=== PATIENT | female | born 1980 | race Caucasian/White ===

== ENCOUNTER 2020-10-12 13:33 | Day surgery (SDC) | payer BC ==
[2020-10-12] MEDS ORDERED: BUPIVACAINE 0.5% VIAL IJ ONE (13:34)
[2020-10-12] MEDS ORDERED: Depo-Medrol 40 MG/ML IM ONE (13:34)
[2020-10-12] MEDS ORDERED: DIPRIVAN 200 MG/20 ML IV ONE (16:39)
[2020-10-12] MEDS ORDERED: Lactated Ringers 1,000 ML IV ONE (16:40)
--- NOTE | 2020-10-12 20:31 | XRAY ---
Indication: Right SI joint injection. Intraoperative fluoroscopy provided for 17 seconds. 2 digital spot image submitted for interpretation demonstrates posterior needle tip projecting over the inferior right SI joint. Correlate with intraoperative findings/report.
--- NOTE | 2020-10-12 21:34 | XRAY ---
17 seconds of fluoroscopy was used in surgery for a right SI joint injection.
== END 2020-10-12 17:07 | disposition home or self-care (01) ==
LOC: SDC-PAIN 13:33
PROVIDERS: ATTEND Psychiatry & Neurology Pain Medicine
DX: M46.1 Sacroiliitis, not elsewhere classified (principal)
CPT/HCPCS: 27096; 72020; 77002; 84703; J1030; J2704; G0260

== ENCOUNTER 2021-04-12 10:13 | Emergency (ER) | payer BC ==
[2021-04-12 10:22] VITALS: BP 108/76; PULSE 72; O2SAT 100
[2021-04-12] MEDS ORDERED: Sodium Chloride 0.9% 1000 ML 1,000 ML ONE (10:39)
[2021-04-12] MEDS ORDERED: Sodium Chloride 0.9% 1000 ML 1,000 ML IV STA (10:45)
--- NOTE | 2021-04-12 10:45 | ERPHSYRPT ---
- History of Present Illness Time Seen by Provider: 04/12/21 10:41 Source: patient Exam Limitations: no limitations Patient Subjective Stated Complaint: Pt was at the lab giving blood and she suddenly became light headed and lab personnel stated that she began having seizure like activety, afterwards, they gave her juice to drink and she vomited and was sent down to the ER Triage Nursing Assessment: Pt brought to the ER from the lab, hypotensive, denies pain, pt states that she did have a seizure once while in high school while she was giving blood, pt reports lab work today due to not having any done in several years and she has been feeling overly tired, pulses normal, skin n/w/d, pt had been fasting this morning and was worked up about the blood work Physician History: This is a 40-year-old white female who was brought to the emergency department from the lab after obtaining many vials of blood for laboratory evaluation. Patient felt as though she was going to pass out and had seizure-like activity. She had a similar episode in the distant past during blood draw. Patient did fast last night for the blood draw today. She does feel as though she is dehydrated. She had a vomiting episode. She also stated that she was nauseated upon entrance into the emergency department. However, that has resolved. In discussing the work-up, I told the patient I would review her labs that were just drawn and not repeat unnecessarily. I also recommended intravenous normal saline infusion, urinalysis with test if indicated, EKG and a CAT scan of the head. Patient was unsure that she wanted to do any of the above except for infusion of normal saline. Timing/Duration: today Severity: moderate Associated Symptoms: nausea, vomiting, seizure (Seizure-like activity), No chest pain Allergies/Adverse Reactions: Penicillins Allergy (Verified 04/12/21 10:23) Home Medications: No Reportable Medications [No Reported Medications] 04/12/21 [History] Travel Risk - International Travel Have you traveled outside of the country in past 3 weeks: No - Coronavirus Screening Are you exhibiting any of the following symptoms?: No Close contact with a COVID-19 positive Pt in past 14-21 Days: No - Vaccine Status Have you recieved a Covid-19 vaccination: Yes Instrumentation Technologist: Unknown - Vaccination Dates Dates if Unknown: unknown - Review of Systems Constitutional: Weakness Eyes: No Symptoms Ears, Nose, & Throat: No Symptoms Respiratory: No Symptoms Cardiac: No Symptoms Abdominal/Gastrointestinal: No Symptoms Genitourinary Symptoms: No Symptoms Musculoskeletal: No Symptoms Skin: No Symptoms Neurological: Seizure (Seizure-like activity) Psychological: No Symptoms Endocrine: No Symptoms Hematologic/Lymphatic: No Symptoms Immunological/Allergic: No Symptoms All Other Systems: Reviewed and Negative - Past Medical History Pertinent Past Medical History: No - Past Surgical History Past Surgical History: Yes - Social History Smoking Status: Never smoker Exposure to second hand smoke: No Patient Lives Alone: No - Female History Hx Last Menstrual Period: 03/30/2021 Hx Now: No - Nursing Vital Signs Nursing Vital Signs: Initial Vital Signs Temperature 98.2 F 04/12/21 10:15 Pulse Rate 72 04/12/21 10:15 Respiratory Rate 22 04/12/21 10:15 Blood Pressure 108/76 04/12/21 10:15 O2 Sat by Pulse Oximetry 100 04/12/21 10:15 Pain Scale Pain Intensity 0 - Physical Exam General Appearance: no apparent distress, alert, anxiety Eye Exam: PERRL/EOMI, eyes nml inspection Ears, Nose, Throat Exam: dry mucous membranes Neck Exam: normal inspection, non-tender, supple, full range of motion Respiratory Exam: normal breath sounds, lungs clear, airway intact, No chest tenderness, No respiratory distress Cardiovascular Exam: regular rate/rhythm, normal heart sounds, normal peripheral pulses Gastrointestinal/Abdomen Exam: soft, normal bowel sounds, No tenderness Pelvic Exam: not done Rectal Exam: not done Back Exam: normal inspection, normal range of motion, No CVA tenderness, No vertebral tenderness Extremity Exam: normal inspection, normal range of motion, pelvis stable Neurologic Exam: alert, oriented x 3, cooperative, customer solutions coordinator II-XII nml as tested, normal mood/affect, nml cerebellar function, nml station & gait, sensation nml Skin Exam: normal color, warm, dry Lymphatic Exam: No adenopathy SpO2 Interpretation: normal SpO2: 100 O2 Delivery: Room Air Ordered Tests: Active Orders 24 hr Category Date Time Status IV Insertion STAT Care 04/12/21 10:45 Active Medication Summary Generic Name Dose Route Start Last Admin Trade Name Freq PRN Reason Stop Dose Admin Sodium Chloride 1,000 mls @ 999 mls/hr 04/12/21 10:45 04/12/21 10:50 Sodium Chloride 0.9% 1000 Ml IV 04/12/21 11:45 999 mls/hr .[id number] STA Administration Discontinued Medications Generic Name Dose Route Start Last Admin Trade Name Juan Carlos PRN Reason Stop Dose Admin Sodium Chloride Confirm 04/12/21 10:39 Sodium Chloride 0.9% 1000 Ml Administered 04/12/21 10:40 Dose 1,000 mls @ ud .ROUTE .STK-MED ONE - Progress Progress: improved, re-examined Progress Note: 04/12/21 11:07 Patient was reexamined. She is alert and oriented. She said she is feeling much better. Patient refuses urine laboratory studies, more blood studies and refuses CAT scan of the head. Patient spoke with her and her mother and has decided against the above work-up. She only is agreeing to the 12-lead EKG and infusion of 1 L of fluid intravenously. She will sign a refusal of treatment. Counseled pt/family regarding: need for follow-up - Departure Departure Disposition: Home Clinical Impression: Vasovagal episode Condition: Stable Critical Care Time: No Referrals: TOMMY TODD NP [Primary Care Provider] - Follow up/PCP as directed Additional Instructions: Drink plenty of fluids. Follow-up with your prescribing provider for further evaluation and management.
== END 2021-04-12 11:40 | disposition home or self-care (01) ==
LOC: ED 10:13
DX: R55 Syncope and collapse (principal); R11.2 Nausea with vomiting, unspecified; R56.9 Unspecified convulsions
CPT/HCPCS: 96360; 99283